=== PATIENT | female | born 1960 | race Caucasian/White ===

== ENCOUNTER 2021-05-17 09:29 | Emergency (ER) | payer OTHER ==
[~2021-05-17] VITALS: Ht 152.4 cm; Wt 75.7 kg
[2021-05-17] MEDS ORDERED: IRBESARTAN-HCT1 EACH PO (10:01)
[2021-05-17] MEDS ORDERED: ROSUVASTATIN CA10 MG PO (10:01)
== END 2021-05-17 13:27 | disposition home or self-care (01) ==
LOC: ER 09:29
DX: R42 Dizziness and giddiness (principal); I10 Essential (primary) hypertension